=== PATIENT | male | born 1960 | race Caucasian/White ===

== ENCOUNTER 2016-06-02 12:42 | Emergency (ER) | payer SELFPAY ==
[~2016-06-02] VITALS: Ht 177.8 cm; Wt 100.0 kg
[~2016-06-02 12:42] MED LIST: CLARITIN; LIPITOR20 MG PO; LIPITOR40 MG PO; LORTAB 7.5/5001 TAB; PRILOSEC40 MG PO; REGLAN 10MG10 MG/TAB PO; XANAX0.5 MG PO; ZOLOFT 50MG50 MG PO; ZOLOFT50 MG PO
[2016-06-02 12:45] VITALS: BP 152/90; PULSE 86; TEMP 97.9
[2016-06-02] MEDS ORDERED: AMOXICILLIN/CLA1 TA1 PO (13:06)
== END 2016-06-02 13:35 | disposition home or self-care (01) ==
LOC: COL.ER 12:42
DX: S61.451A Open bite of right hand, initial encounter (principal); W54.0XXA Bitten by dog, initial encounter; Z23 Encounter for immunization

== ENCOUNTER 2018-02-24 12:08 | Emergency (ER) | payer OTHER ==
[~2018-02-24] VITALS: Ht 177.8 cm; Wt 100.0 kg
[~2018-02-24 12:08] MED LIST changes: +AMOXICILLIN/CLA1 TA1 PO
[2018-02-24 12:10] VITALS: BP 139/89; PULSE 81; TEMP 99.3
[2018-02-24] MEDS ORDERED: GLUCOPHAGE1000 MG PO (12:45)
[2018-02-24] MEDS ORDERED: CRUTCHES MC (13:09)
== END 2018-02-24 13:20 | disposition home or self-care (01) ==
LOC: COL.ER 12:08
DX: S83.91XA Sprain of unspecified site of right knee, initial encounter (principal); I10 Essential (primary) hypertension; X50.0XXA Overexertion from strenuous movement or load, initial encounter
CPT/HCPCS: L1846; Q4041

== ENCOUNTER 2018-07-12 11:00 | Outpatient (RCR) | payer OTHER ==
[~2018-07-12 11:00] MED LIST changes: +CRUTCHES MC; +GLUCOPHAGE1000 MG PO
== END 2018-07-12 12:34 | disposition home or self-care (01) ==
LOC: WSPT 11:00
DX: M25.561 Pain in right knee (principal); Z98.890 Other specified postprocedural states